=== PATIENT | male | born 1965 | race Hispanic/Latino ===

== ENCOUNTER 2022-04-24 13:34 | Day surgery (SDC) | payer OTHER ==
[~2022-04-24] VITALS: Ht 167.6 cm; Wt 102.1 kg
--- NOTE | 2022-04-24 18:00 | NUR ---
04/24/22 1800 Cheri Giles 1754- PT ARRIVES TO PACU AWAKE AND TALKING. PT REPORTS NO PAIN OR NAUSEA. RESP EVEN AND UNLABORED. OXYGEN SAT MID TO HIGH 90'S ON RA. 1757- PT'S HEAD OF BED ELEVATED. PT REPORTS NO DIZZINESS, NAUSEA, OR PAIN. 1758- PT SIPPING ON ICE WATER. PT TOLERATING WELL.
--- NOTE | 2022-04-25 06:01 | OR ---
[facility] [address], [place] [address] Signed DATE OF OPERATION: 04/24/2022 SURGEON: Kayla Fuentes MD PREOPERATIVE DIAGNOSIS: Distal esophageal foreign body (pork/chicken). POSTOPERATIVE DIAGNOSES: 1. No esophageal foreign body. 2. Mild distal esophagitis. PROCEDURE: EGD without biopsy. ESTIMATED BLOOD LOSS: None. INDICATIONS: Roberto is a 56-year-old gentleman, who in the last few weeks has had two episodes where meat has gotten stuck in his distal esophagus. 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 He decided to come to the emergency room for evaluation. This occurred at lunch time. The ER doctor called me and told me that Roberto was spitting up saliva every few minutes. He decided not to give glucagon or perform any type of x-ray. Lab work was unremarkable. I had met with Roberto and his son and in the ER. He was supine, semi-recumbent in his ER bed. He did very well to control the saliva throughout our interview. He pointed near the subxiphoid area as the area of concern. Roberto has been to a colonoscopy several years ago. I explained him that an upper endoscopy is very similar. We would have to sedate him for the procedure. There is risk to that procedure including, but not limited to gas bloating, crampy abdominal pain, bleeding, perforation requiring surgery, and missed diagnosis. He had expressed understanding and wished to proceed. PROCEDURE NOTE: Roberto was taken into our endoscopy suite and placed in a supine semi-recumbent position. He said it had been at least 20 minutes and he coughed up any saliva. We elected to give him monitored anesthesia care with propofol to start. A bite block was utilized. The adult gastroscope was introduced and advanced down the esophagus very carefully. We did not encounter any saliva as we came down and we just saw some mild irritation right at the GE junction. Once out in the stomach, he still had some fluid and pieces of meat in the stomach, both the fundus and the antrum. We did not take any Electronically Signed By: KAYLA FUENTES MD 04/25/22 0601 PATIENT NAME: ROBERTO FERNANDEZ OPERATIVE REPORT DATE OF : 65 REPORT #: [id number] PHYSICIAN: KAYLA FUENTES MD PCP: Micah Bowman DO REPORT IS CONFIDENTIAL AND NOT TO BE RELEASED WITHOUT AUTHORIZATION [facility] [address], [place] [address] Signed biopsies out of the stomach. We did not pass the gastroscope through the food into the pyloric channel or the duodenum. We could not see the GE junction itself because of the food and the fluid. The scope had been withdrawn up through the area of the GE junction, which seemed to be compliant. It was a little irritated, so it is hard to know if there is a true stricture. No obvious hiatal hernia. The middle and upper esophagus were unremarkable. After this, the gas was suctioned out, the gastroscope removed. Roberto tolerated the procedure quite well. RECOMMENDATIONS: Roberto will be discharged home with his son and his . I have written for omeprazole 20 mg p.o. daily for a month with one refill. He is going to come back and see me in a week or two at the office for followup. We will order a barium swallow to see if indeed there is a stricture. If in fact, there was a stricture, we will schedule him for dilation. I had reviewed this with Roberto and his family and they have expressed understanding and agreed to above plan. Kayla Fuentes MD ALB/MODL /[id number] cc: MD Micah Barton DO Copies: KAYLA FUENTES MD, Jonas H DO ~ Electronically Signed By: KAYLA FUENTES MD 04/25/22 0601 PATIENT NAME: ROBERTO FERNANDEZ OPERATIVE REPORT DATE OF : 65 REPORT #: [id number] PHYSICIAN: KAYLA FUENTES MD PCP: Micah Bowman DO REPORT IS CONFIDENTIAL AND NOT TO BE RELEASED WITHOUT AUTHORIZATION
--- NOTE | 2022-04-25 06:01 | CONS ---
[facility] [address] [place], [place] [address] Signed DATE OF CONSULTATION: 04/24/2022 CHIEF COMPLAINT: Substernal chest pain. HISTORY OF PRESENT ILLNESS: Roberto is a 56-year-old gentleman, who is concerned about a distal esophageal foreign body. Namely pork and chicken. He said this happened a few weeks ago, but it passed through. This happened around noon time when he was eating his lunch. Every 5 minutes or so, the esophagus fills with saliva and he has to spit it out. He came to emergency room for evaluation. I was asked to come to the emergency room to see him as a general surgeon on-call. PAST MEDICAL HISTORY: None. PAST SURGICAL HISTORY: Left knee replacement, right shoulder surgery, right ankle surgery, colonoscopy at age 51, which was unremarkable. He was asked to follow up in 10 years. SOCIAL HISTORY: He does not smoke or drink. Dr. Micah Bowman is his primary care provider. He prefers the [facility]. He is to his , Krupa, who speaks very little Malay. His son Hadley is here with us at #[phone]. His daughter is Cynthia at #[phone]. 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 FAMILY HISTORY: No family history of colon cancer or polyps or other significant medical issues. REVIEW OF SYSTEMS: He had 10 systems reviewed and found no new issues. ALLERGIES: None. MEDICATIONS: None. PHYSICAL EXAMINATION: VITAL SIGNS: Blood pressure is 130/98, heart rate 70, respiratory rate 18, his temperature is 98.9. He is 94% on room air. He is 5 feet 6 inches, 102 kg with a body mass index of 36. GENERAL: Roberto is a 56-year-old gentleman, lying supine semi-recumbent in his ER bed Electronically Signed By: KAYLA FUENTES MD 04/25/22 0601 PATIENT NAME: ROBERTO FERNANDEZ CONSULTATION DATE OF : 65 REPORT #: [id number] PHYSICIAN: KAYLA FUENTES MD PCP: Micah Bowman DO REPORT IS CONFIDENTIAL AND NOT TO BE RELEASED WITHOUT AUTHORIZATION [facility] [address] [place] [id number] Signed with his and son. He is alert, awake, and interactive. There is no acute distress. He has no airway obstruction and talks in full sentences. LUNGS: Clear to auscultation bilaterally. HEART: Regular rate and rhythm without murmurs. ABDOMEN: Moderately protuberant. LABORATORY DATA: White blood count 10.5, hemoglobin 15. Electrolytes unremarkable. COVID is pending. RADIOGRAPHIC STUDIES: None. ASSESSMENT/PLAN: Roberto is a 56-year-old gentleman, who has pork and chicken stuck in his distal esophagus. I reviewed the idea of upper endoscopy relative to his previous colonoscopy. He understands he will need to be sedated. He is not to work for 24 hours. His son will be able to take him home afterwards. We usually have him follow up in a week or two for a barium swallow to see if there is a stricture. We biopsy or dilate anything acutely when it is inflamed. He understands there is risk including, but not limited to gas bloating, crampy abdominal pain, bleeding, perforation requiring surgery, and missed diagnosis. He has expressed understanding and would like to proceed. Kayla Fuentes MD ALB/MODL /[id number] cc: DO Kayla Mitchell MD Copies: Micah Bowman ANDREW L MD ~ Electronically Signed By: KAYLA FUENTES MD 04/25/22 0601 PATIENT NAME: ROBERTO FERNANDEZ CONSULTATION DATE OF : 65 REPORT #: [id number] PHYSICIAN: KAYLA FUENTES MD PCP: Micah Bowman DO REPORT IS CONFIDENTIAL AND NOT TO BE RELEASED WITHOUT AUTHORIZATION
--- NOTE | 2022-04-26 19:23 | EKG ---
[facility] [address] [facility] [place] [address] Signed Normal sinus rhythm Right bundle branch block Abnormal ECG No previous ECGs available Confirmed by CARIN YUEN MD ([id number]) on 04/26/2022 7:23:08 PM Electronically Signed By: CARIN YUEN MD 04/26/221922 PATIENT NAME: NEIDA FERNANDEZ Electrocardiogram DATE OF : 65 PHYSICIAN: CARIN YUEN MD REPORT #: [id number] REPORT IS CONFIDENTIAL AND NOT TO BE RELEASED WITHOUT AUTHORIZATION
== END 2022-04-24 18:30 | disposition home or self-care (01) ==
LOC: ED 13:34 → DS 16:44 → DSVR 16:44 → DS 18:30
PROVIDERS: ATTEND Colon & Rectal Surgery
PROC: 0DJ08ZZ Inspection of Upper Intestinal Tract, Via Natural or Artificial Opening Endoscopic (ICD-10-PCS; principal; 2022-04-24 17:30)
DX: K20.90 Esophagitis, unspecified without bleeding (principal); Z96.652 Presence of left artificial knee joint; Z20.822 Contact with and (suspected) exposure to COVID-19
CPT/HCPCS: 00731; 36415; 80048; 85025; 93005; 93010; 96374; 99284-25; C9803; J0690; J1100; J2405; J2704; J3010; J7030; J7121; U0003